=== PATIENT | female | born 1955 | race Caucasian/White ===

== ENCOUNTER → 2018-11-13 15:18 | Outpatient (CLI) | payer OTHER, MEDICAID, SELFPAY ==
--- NOTE | 2018-11-13 15:21 | DI.RAD.S_ITS ---
PROCEDURE: XR CERVICAL SPINE 2V OR 3V INDICATIONS: SPINAL STENOSIS CERVICAL REGION TECHNIQUE: 3 view(s) of the cervical spine were acquired. COMPARISON: None. FINDINGS: Bones: The cervicothoracic junction is adequately visualized on the lateral view and the alignment through this region is well-maintained. The vertebral body heights throughout the cervical spine are well-maintained. No acute compression fractures are evident. The bone mineralization is within normal limits. No suspicious osseous lesions are present. Moderate degenerative changes of the cervical spine are evident with areas of mild to moderate disc height loss and facet arthrosis (left greater than right). Soft tissues: No prevertebral soft tissue swelling. IMPRESSION: Moderate degenerative changes of the cervical spine are more pronounced involving the facet joints (left greater than right). Dictated by: Cooper Kimbrough M.D. on 11/13/2018 at 14:53 Approved by: Cooper Kimbrough M.D. on 11/13/2018 at 14:54
== END ==
PROVIDERS: Visit Provider Family Medicine
DX: M48.02 Spinal stenosis, cervical region (principal); M47.812 Spondylosis without myelopathy or radiculopathy, cervical region
CPT/HCPCS: 72040

== ENCOUNTER → 2018-12-01 10:42 | Outpatient (CLI) | payer OTHER, MEDICAID, SELFPAY | PROVIDERS: Visit Provider Family Medicine | DX: M81.0 Age-related osteoporosis without current pathological fracture (principal); Z78.0 Asymptomatic menopausal state; M47.22 Other spondylosis with radiculopathy, cervical region | CPT/HCPCS: 77080 ==

== ENCOUNTER → 2021-01-16 07:46 | Outpatient (CLI) | payer MEDICARE, OTHER, SELFPAY ==
[2021-01-16 21:23] LABS: COVID19 - ORCAS (NP or Nasal) Negative (Negative)
== END ==
PROVIDERS: PCP Specialist; Visit Provider Physician Assistant
DX: Z20.822 Contact with and (suspected) exposure to COVID-19 (principal)
CPT/HCPCS: U0003

== ENCOUNTER → 2021-01-18 13:54 | Outpatient (CLI) | payer MEDICARE, OTHER, SELFPAY ==
[2021-01-18 18:56] LABS: Add Manual Diff / Slide Review NO; Basophils Absolute Auto 0 /uL (0-100); Basophils Percent Auto 0.7 % (0-2); Eosinophils Absolute Auto 100 /uL (0-450); Eosinophils Percent Auto 1.1 % (2-4); Hematocrit 38.7 % (36-46); Hemoglobin 12.9 g/dL (12.0-16.0); Lymphocytes Absolute Auto 1600 /uL (1100-4500); Lymphocytes Percent Auto 26.8 % (25-40); Mean Corpuscular HGB Conc 33.3 % (30-36); Mean Corpuscular Hemoglobin 30.3 PG (26-34); Mean Corpuscular Volume 90.9 fL (80-100); Monocytes Absolute Auto 300 /uL (0-900); Monocytes Percent Auto 4.7 % (3-14); Neutrophils Absolute Auto 3900 /uL (1500-7000); Neutrophils Percent Auto 66.7 % (50-75); Platelet Count 218 X10^3/uL (150-400); Red Blood Cell Count 4.26 X10^6/uL (4.0-5.2); Red Cell Distribution Width 13.9 % (11.6-14.8); White Blood Cell Count 5.9 X10^3/uL (4.5-11.0)
[2021-01-18 19:21] LABS: Erythrocyte Sedimentation Rate 5 MM/HR (0-20)
== END ==
PROVIDERS: PCP Specialist; Referring Provider Family Medicine; Visit Provider Family Medicine
DX: M25.50 Pain in unspecified joint (principal)
CPT/HCPCS: 85025; 85651; 86617

== ENCOUNTER → 2021-01-23 08:58 | Outpatient (CLI) | payer MEDICARE, OTHER, SELFPAY ==
--- NOTE | 2021-01-23 09:00 | DI.NM.S_ITS ---
PROCEDURE: [place] BONE 3 PHASE RADIOPHARMACEUTICAL: 19.4 mCi Tc-99m MDP IV. INDICATIONS: Progressive right 4th and 5th metatarsal pain after hiking TECHNIQUE: Multiple bone scintigrams were obtained after intravenous injection of Tc-99m MDP, including flow, blood pool, and delayed images centered to the region of interest. COMPARISON: None. FINDINGS: There is no abnormal blood flow to the feet. There is significant increased blood pool and delayed radiotracer uptake within the region of the right 4th metatarsal neck, as well as mildly increased uptake within the left 1st and 2nd metatarsophalangeal joints. IMPRESSION: 1. Findings suggestive of a fracture of the right 4th metatarsal head/neck region. 2. Findings suggestive of osteoarthritis involving the left 1st and 2nd metatarsophalangeal joints. 3. Initial further assessment with plain film evaluation is recommended. MRI may also be helpful for further assessment. Dictated by: Mary Fuentes M.D. on 01/23/2021 at 15:23 Approved by: Mary Fuentes M.D. on 01/23/2021 at 15:26
== END ==
PROVIDERS: PCP Family Medicine; Referring Provider Family Medicine; Visit Provider Family Medicine
DX: M79.671 Pain in right foot (principal)
CPT/HCPCS: 78315; A9503

== ENCOUNTER → 2021-02-06 09:14 | Outpatient (CLI) | payer MEDICARE, OTHER, SELFPAY | PROVIDERS: PCP Family Medicine; Visit Provider Family Medicine | DX: N23 Unspecified renal colic (principal) | CPT/HCPCS: 87086 ==

== ENCOUNTER → 2021-03-04 07:54 | Outpatient (CLI) | payer MEDICARE, OTHER, SELFPAY ==
[2021-03-04 20:32] LABS: COVID19 - ORCAS (NP or Nasal) Negative (Negative)
== END ==
PROVIDERS: PCP Family Medicine; Visit Provider Family Medicine
DX: Z20.822 Contact with and (suspected) exposure to COVID-19 (principal)
CPT/HCPCS: C9803; U0003

== ENCOUNTER → 2021-04-02 16:14 | Outpatient (CLI) | payer MEDICARE, OTHER, SELFPAY ==
--- NOTE | 2021-04-02 16:16 | DI.MRI.S_ITS ---
PROCEDURE: MR FOOT RT WO CON INDICATIONS: rule out nonunion of a proximal right 4th metatarsal fractur TECHNIQUE: Noncontrast sagittal T1 spin echo and T2 fast spin echo with fat saturation, long-axis T1 spin echo and T2 fast spin echo with fat saturation, short-axis T1 spin echo and T2 fast spin echo with fat saturation through the forefoot. COMPARISON: [place], [place], [place] BONE 3 PHASE, 01/23/2021, 9:27. FINDINGS: Image quality: Excellent. Bones and joints: Osseous edema is seen in the distal 4th metatarsal at the site of a healing fracture. There appears to be partial osseous fusion inferiorly on T1-weighted images, although the more dorsal and lateral portions of the fracture line are still visualized. No additional site of trabecular bone injury is seen. Moderate degenerative changes are seen at the 1st metatarsophalangeal joint. The sesamoid bones are normally aligned. Scattered degenerative changes are seen at the interphalangeal joints of the toes. Soft tissues: Mild soft tissue edema is seen surrounding the healing 4th metatarsal fracture. Nonspecific subcutaneous soft tissue edema is seen in the forefoot dorsally and at the plantar aspect of the 2nd through 4th toes. Chronic pressure related changes are seen plantar to the 5th metatarsal head. A small amount of osseous edema is seen within the plantar foot musculature that is nonspecific. The musculature is normal in bulk. The visualized flexor and extensor tendons are intact. The principal Lisfranc ligament appears intact. No soft tissue ganglion cysts or bursal fluid collections. Sagittal images demonstrate no evidence for plantar plate tears. IMPRESSION: 1. Healing fracture of the 4th metatarsal neck with surrounding osseous and soft tissue edema. There is partial osseous fusion across the plantar portion of the metatarsal neck. 2. Moderate 1st metatarsophalangeal joint osteoarthrosis. Mild scattered degenerative changes are seen in the toes. Dictated by: Quinn Rosales M.D. on 04/03/2021 at 10:12 Approved by: Quinn Rosales M.D. on 04/03/2021 at 10:18
== END ==
PROVIDERS: PCP Family Medicine; Referring Provider Family Medicine; Visit Provider Family Medicine
DX: M79.671 Pain in right foot (principal); M19.071 Primary osteoarthritis, right ankle and foot; S92.341D Displaced fracture of fourth metatarsal bone, right foot, subsequent encounter for fracture with routine healing; R60.0 Localized edema; X58.XXXD Exposure to other specified factors, subsequent encounter
CPT/HCPCS: 73718

== ENCOUNTER → 2021-07-22 12:34 | Outpatient (CLI) | payer MEDICARE, OTHER, SELFPAY ==
[2021-07-22 19:38] LABS: Alanine Aminotransferase 14 IU/L (<35); Albumin Globulin Ratio 1.5 (1.0-2.8); Alkaline Phosphatase 46 U/L (38-126); Aspartate Aminotransferase 25 IU/L (14-36); BUN Creatinine Ratio 13.6 (6-22); Bilirubin Total 0.7 mg/dL (0.2-1.3); Blood Urea Nitrogen 9 mg/dL (7-17); Calcium 9.2 mg/dL (8.4-10.2); Carbon Dioxide 33 mmol/L (22-32); Chloride 102 mmol/L (98-107); Cholesterol 233 mg/dL (140-199); Estimated Glomerular Filt Rate > 60.0 mL/min (>60); Globulin 2.7 g/dL (1.7-4.1); Glucose 99 mg/dL (80-110); HDL Cholesterol 76 mg/dL (40-60); HEMOLYSIS < 15 (0-50); LDL Cholesterol Calculated 140 mg/dL (<100); Potassium 4.2 mmol/L (3.4-5.1); Sodium 134 mmol/L (137-145); Total Protein 6.7 g/dL (6.3-8.2); Triglycerides 87 mg/dL (35-150)
[2021-07-22 19:50] LABS: Free T4, Direct Thyroxine 1.06 ng/dL (0.78-2.19)
[2021-07-22 20:04] LABS: Thyroid Stimulating Hormone 1.33 uIU/mL (0.47-4.68)
== END ==
PROVIDERS: PCP Family Medicine; Visit Provider Family Medicine
DX: B97.7 Papillomavirus as the cause of diseases classified elsewhere (principal); M81.8 Other osteoporosis without current pathological fracture; E07.9 Disorder of thyroid, unspecified; R42 Dizziness and giddiness; S92.343A Displaced fracture of fourth metatarsal bone, unspecified foot, initial encounter for closed fracture
CPT/HCPCS: 80053; 80061; 84439; 84443

== ENCOUNTER → 2021-07-30 08:56 | Outpatient (CLI) | payer MEDICARE, OTHER, SELFPAY ==
--- NOTE | 2021-07-30 08:58 | DI.US.S_ITS ---
PROCEDURE: US CHEST COMPARISON: None. INDICATIONS: RIGHT ANTERIOR CHEST WALL PAIN FINDINGS: No mass, fluid collection, or other abnormality at the patient's area of concern in the anterior chest wall. IMPRESSION: Normal study. No abnormality demonstrated at the area concern. Dictated by: Redd Farmer M.D. on 07/30/2021 at 10:23 Approved by: Redd Farmer M.D. on 07/30/2021 at 10:24
== END ==
PROVIDERS: PCP Family Medicine; Referring Provider Physician Assistant Medical; Visit Provider Physician Assistant Medical
DX: R07.89 Other chest pain (principal)
CPT/HCPCS: 76604

== ENCOUNTER → 2021-09-06 10:29 | Outpatient (CLI) | payer MEDICARE, OTHER, SELFPAY ==
[2021-09-06 11:37] LABS: COVID19 -Nasal RAPID Negative (Negative)
== END ==
PROVIDERS: PCP Family Medicine; Referring Provider Internal Medicine; Visit Provider Internal Medicine
DX: Z20.822 Contact with and (suspected) exposure to COVID-19 (principal)
CPT/HCPCS: 87635; C9803

== ENCOUNTER → 2021-09-06 10:31 | Outpatient (CLI) | payer MEDICARE, OTHER, SELFPAY ==
--- NOTE | 2021-09-11 10:26 | PM.PFT.1 ---
Pulmonary Function Test Referral & Results Date Patient Seen: 09/06/21 Requesting provider: Kendy Fajardo Results: The spirometry demonstrates an FVC of 3.16 L which is 90% of predicted. The FEV1 was measured at 2.25 L which is 85% of predicted. The FEV1/FVC ratio was 71 which is 92% of predicted. Following the administration of bronchodilator there was 29% improvement in FEF 25-75% Lung volumes show an SVC of 3.34 L which is 103% of predicted. The diffusing capacity was measured at 24.36 which is 86% of predicted. The maximum voluntary ventilation was probably normal Interpretation: This study demonstrates probably normal pulmonary function. The maybe a very minimal reduction in FEV1 with some minimal evidence of benefit following bronchodilator as above. This may suggest very minimal obstructive lung disease. Shape a flow volume loop also supports this but overall, if present, this is extremely minimal Clinical correlation suggested
== END ==
PROVIDERS: PCP Family Medicine; Referring Provider Specialist; Visit Provider Specialist
DX: R91.8 Other nonspecific abnormal finding of lung field (principal); Z20.822 Contact with and (suspected) exposure to COVID-19; R06.00 Dyspnea, unspecified; J98.8 Other specified respiratory disorders; R93.89 Abnormal findings on diagnostic imaging of other specified body structures
CPT/HCPCS: 87635; 94060; 94726; 94729; C9803

== ENCOUNTER → 2021-12-05 11:00 | Outpatient (CLI) | payer MEDICARE, OTHER, SELFPAY ==
--- NOTE | 2021-12-05 | DI.MRI.S_ITS ---
PROCEDURE: MR FOOT RT WO CON INDICATIONS: Pain in right foot TECHNIQUE: Noncontrast sagittal T1 spin echo and T2 fast spin echo with fat saturation, long-axis T1 spin echo and T2 fast spin echo with fat saturation, short-axis T1 spin echo and T2 fast spin echo with fat saturation through the forefoot. COMPARISON: [facility], , MR FOOT RT WO CON, 04/02/2021, 17:02. FINDINGS: Image quality: Excellent. Bones and joints: No bone marrow contusions or metatarsal stress fractures. The sesamoid bones appear in expected positions, without internal edema. Mild periarticular osteophyte formation at the 1st metatarsophalangeal joint. Mild degenerative marrow edema within the 1st metatarsal head and proximal aspect of the proximal phalanx of the 1st digit. No intraosseous lesions. Soft tissues: The visualized plantar foot muscles demonstrate normal signal and bulk. Visualized flexor and extensor tendons appear intact, without tenosynovitis. The distal insertions of the peroneus brevis and longus tendons appear intact. The principal Lisfranc ligament appears intact. No soft tissue ganglion cysts or bursal fluid collections. Sagittal images demonstrate no evidence for plantar plate tears. IMPRESSION: 1. 1st metatarsophalangeal joint osteoarthritis. Dictated by: Mary Fuentes M.D. on 12/05/2021 at 13:41 Approved by: Mary Fuentes M.D. on 12/05/2021 at 13:44
== END ==
PROVIDERS: Referring Provider Podiatrist; Visit Provider Podiatrist
DX: M19.071 Primary osteoarthritis, right ankle and foot (principal); M79.671 Pain in right foot
CPT/HCPCS: 73718

== ENCOUNTER → 2022-02-03 09:25 | Outpatient (CLI) | payer MEDICARE, OTHER, SELFPAY ==
--- NOTE | 2022-02-03 | DI.RAD.S_ITS ---
PROCEDURE: XR BONE LENGTH SCANOGRAM INDICATIONS: UNEQUAL LEG LENGTH, PAIN IN RIGHT FOOT AND HIP TECHNIQUE: Frontal supine views of both lower extremities acquired at the level of the hips, knees, and ankles, with measuring ruler situated between the legs. COMPARISON: None. FINDINGS: Right: Superior femoral head is located at approximately 93 cm. Medial femoral condyle articular surface is located at approximately 47.5 cm. Central tibial plafond is located approximately 10.5 cm. Calculated length from the superior femoral head to the medial femoral condyle is 45.5 cm. Calculated length from the medial femoral condyle to the central tibial plafond and is 37 cm. Total leg length is 82.5 cm. Left: Superior femoral head is located at approximately 93 cm. Medial femoral condyle articular surface is located at approximately 47 cm. Central tibial plafond is located approximately 10.5 cm. Calculated length from the superior femoral head to the medial femoral condyle is 46 cm. Calculated length from the medial femoral condyle to the central tibial plafond and is 37.5 cm. Total leg length is 82.5 cm. IMPRESSION: No significant leg length discrepancy. Dictated by: Quinn Rosales M.D. on 02/04/2022 at 15:51 Approved by: Quinn Rosales M.D. on 02/04/2022 at 15:59
== END ==
PROVIDERS: Referring Provider Student in an Organized Health Care Education/Training Program; Visit Provider Student in an Organized Health Care Education/Training Program
DX: M21.70 Unequal limb length (acquired), unspecified site (principal); M79.673 Pain in unspecified foot; M25.551 Pain in right hip
CPT/HCPCS: 77073

== ENCOUNTER → 2022-02-03 10:04 | Outpatient (CLI) | payer MEDICARE, OTHER, SELFPAY ==
--- NOTE | 2022-02-03 | DI.MG.S_ITS ---
BILATERAL DIGITAL SCREENING MAMMOGRAM 3D/2D WITH CAD: 02/03/2022 CLINICAL: Routine screening. Comparison is made to exams dated: 02/22/2020 mammogram, 12/01/2018 mammogram, and 12/12/2016 mammogram - [facility]. The tissue of both breasts is extremely dense, which lowers the sensitivity of mammography. Current study was also evaluated with a Computer Aided Detection (CAD) system. No significant masses, calcifications, or other findings are seen in either breast. There has been no significant interval change. IMPRESSION: NEGATIVE There is no mammographic evidence of malignancy. A 1 year screening mammogram is recommended. Based on the Tyrer Cuzick model (a risk assessment model) the patient's lifetime risk is 14.5% and her 10 year risk is 7.7%. According to the ACR, ACS, and NCCN guidelines, an annual breast MRI exam along with mammogram is recommended if the patient's lifetime risk is 20% or greater. This exam was interpreted at Station ID: [id number]. NOTE: For mammograms, a report in lay terms will be sent to the patient. Approximately 15% of breast malignancies will not be visualized mammographically. In the management of a palpable breast mass, a negative mammogram must not discourage biopsy of a clinically suspicious lesion. Electronically Signed By: Quinn le/na:02/03/2022 13:03:35 letter sent: Normal Exam ACR BI-RADS Category 1: Negative [id number]
== END ==
PROVIDERS: Referring Provider Podiatrist; Visit Provider Podiatrist
DX: Z12.31 Encounter for screening mammogram for malignant neoplasm of breast (principal); M21.70 Unequal limb length (acquired), unspecified site; M25.551 Pain in right hip; M79.673 Pain in unspecified foot
CPT/HCPCS: 77063; 77067; 77073

== ENCOUNTER → 2022-04-23 12:04 | Outpatient (CLI) | payer MEDICARE, OTHER, SELFPAY ==
[2022-04-25 15:36] LABS: Candida species Negative (Negative); Gardnerella vaginalis Negative (Negative); Trichomoas vaginalis Negative (Negative)
== END ==
PROVIDERS: PCP Physician Assistant; Visit Provider Physician Assistant
DX: Z01.419 Encounter for gynecological examination (general) (routine) without abnormal findings (principal); N89.8 Other specified noninflammatory disorders of vagina
CPT/HCPCS: 87480; 87510; 87660

== ENCOUNTER → 2022-07-08 08:52 | Outpatient (CLI) | payer MEDICARE, OTHER, SELFPAY ==
--- NOTE | 2022-07-08 08:56 | DI.RAD.S_ITS ---
PROCEDURE: XR CERVICAL SPINE 2V OR 3V INDICATIONS: worsening neck pain TECHNIQUE: 3 view(s) of the cervical spine were acquired. COMPARISON: [facility], [place], XR CERVICAL SPINE 2V OR 3V, 11/13/2018, 15:26. FINDINGS: Bones: No fractures or dislocations to the T1 level. The lateral masses of C1 appear intact on the odontoid view. No suspicious bony lesions. Multilevel disc space narrowing and endplate osteophyte formation, worst at C5-C6 and C6-C7, indicating degenerative disc disease. Facet hypertrophy throughout the mid and lower cervical spine. Soft tissues: No prevertebral soft tissue swelling. IMPRESSION: 1. Multilevel degenerative disc and facet disease. 2. No acute fracture. No osseous lesion. If symptoms and/or clinical suspicion for pathology persist, further assessment with repeat, or advanced imaging (e.g., CT, MRI, or bone scan) may be helpful for further assessment. Dictated by: Mary Fuentes M.D. on 07/08/2022 at 11:16 Transcribed by: LUCIANA on 07/08/2022 at 11:19 Approved by: Mary Fuentes M.D. on 07/08/2022 at 16:31
== END ==
PROVIDERS: PCP Physician Assistant; Referring Provider Physician Assistant; Visit Provider Physician Assistant
DX: M50.321 Other cervical disc degeneration at C4-C5 level (principal)
CPT/HCPCS: 72040

== ENCOUNTER → 2022-07-28 10:43 | Outpatient (CLI) | payer MEDICARE, OTHER, SELFPAY ==
--- NOTE | 2022-07-28 10:46 | DI.MRI.S_ITS ---
PROCEDURE: MR CERVICAL SPINE WO CON INDICATIONS: neck pain causing headaches and arm pains TECHNIQUE: Noncontrast sagittal T1 spin echo and T2 fast spin echo, sagittal STIR, foraminal oblique sagittal T2 fast spin echo, and axial gradient echo or T2 fast spin echo through the cervical spine. COMPARISON: None. FINDINGS: Image quality: Excellent. Alignment and Curvature: There is normal bony alignment. Bone Marrow: Marrow demonstrates normal overall signal. Spinal Cord: Visualized spinal cord has normal size and signal. No cerebellar tonsillar herniation. Paraspinous Soft Tissues: No paravertebral masses. Prevertebral soft tissues are normal in thickness. C2-C3: Normal appearance. C3-C4: Normal appearance. C4-C5: Normal appearance. C5-C6: Disc space narrowing and posterior disc osteophyte complex combines with hypertrophic uncovertebral joints result in mild to moderate central stenosis. Moderate foraminal stenosis C6-C7: Disc space narrowing with posterior disc osteophyte complex results in moderate central stenosis with flattening the ventral surface of the cord. Moderate left and mild right foraminal stenosis C7-T1: Normal appearance. IMPRESSION: Multilevel degenerative disc disease and arthropathy results in varying degrees of central and foraminal stenosis including moderate central stenosis C6-7 Approved by: Delonte Salomon M.D. on 07/28/2022 at 16:07
[2022-07-28 13:11] LABS: Add Manual Diff / Slide Review NO; Basophils Absolute Auto 0 /uL (0-100); Basophils Percent Auto 0.7 % (0-2); Eosinophils Absolute Auto 100 /uL (0-450); Eosinophils Percent Auto 1.7 % (2-4); Hemoglobin 12.7 g/dL (12.0-16.0); Lymphocytes Absolute Auto 1400 /uL (1100-4500); Lymphocytes Percent Auto 30.1 % (25-40); Mean Corpuscular HGB Conc 33.5 % (30-36); Mean Corpuscular Hemoglobin 30.4 PG (26-34); Mean Corpuscular Volume 90.8 fL (80-100); Monocytes Absolute Auto 300 /uL (0-900); Monocytes Percent Auto 5.9 % (3-14); Neutrophils Absolute Auto 2900 /uL (1500-7000); Neutrophils Percent Auto 61.6 % (50-75); Platelet Count 208 X10^3/uL (150-400); Red Blood Cell Count 4.18 X10^6/uL (4.0-5.2); Red Cell Distribution Width 13.1 % (11.6-14.8); White Blood Cell Count 4.8 X10^3/uL (4.5-11.0)
[2022-07-28 13:28] LABS: HEMOLYSIS < 15 (0-50); Iron 70 ug/dL (37-170)
[2022-07-28 13:33] LABS: Alanine Aminotransferase 19 IU/L (<35); Albumin 4.3 g/dL (3.5-5.0); Albumin Globulin Ratio 1.7 (1.0-2.8); Alkaline Phosphatase 51 U/L (38-126); Aspartate Aminotransferase 27 IU/L (14-36); Bilirubin Total 0.5 mg/dL (0.2-1.3); Blood Urea Nitrogen 13 mg/dL (7-17); Carbon Dioxide 30 mmol/L (22-32); Chloride 98 mmol/L (98-107); Cholesterol 236 mg/dL (140-199); Estimated Glomerular Filt Rate > 60 mL/min (>60); Globulin 2.6 g/dL (1.7-4.1); Glucose 80 mg/dL (80-110); HDL Cholesterol 82 mg/dL (40-60); HEMOLYSIS < 15 (0-50); LDL Cholesterol Calculated 139 mg/dL (<100); Potassium 4.1 mmol/L (3.4-5.1); Sodium 135 mmol/L (137-145); Total Protein 6.9 g/dL (6.3-8.2); Triglycerides 77 mg/dL (35-150)
[2022-07-28 13:40] LABS: Percent Iron Saturation 18 % (15-50); Total Iron Binding Capacity 379 ug/dL (265-497); Transferrin 278 mg/dL (206-381)
[2022-07-28 13:48] LABS: Vitamin D 25 Hydroxy (D3) 67.9 ng/mL (30.0-100.0)
[2022-07-28 13:53] LABS: Free T4, Direct Thyroxine 1.03 ng/dL (0.78-2.19)
[2022-07-28 14:07] LABS: Ferritin 22 ng/mL (11-264)
== END ==
PROVIDERS: PCP Physician Assistant; Referring Provider Physician Assistant; Visit Provider Physician Assistant
DX: M50.122 Cervical disc disorder at C5-C6 level with radiculopathy (principal); M48.02 Spinal stenosis, cervical region; M81.0 Age-related osteoporosis without current pathological fracture; R07.89 Other chest pain; E07.9 Disorder of thyroid, unspecified; M47.22 Other spondylosis with radiculopathy, cervical region; B97.7 Papillomavirus as the cause of diseases classified elsewhere; M25.50 Pain in unspecified joint; E78.5 Hyperlipidemia, unspecified; Z78.0 Asymptomatic menopausal state; Z86.2 Personal history of diseases of the blood and blood-forming organs and certain disorders involving the immune mechanism
CPT/HCPCS: 36415; 72141; 77080; 80053; 80061; 82306; 82728; 83540; 83550; 84439; 84443; 84481; 85025

== ENCOUNTER → 2023-07-14 08:59 | Outpatient (CLI) | payer MEDICARE, SELFPAY ==
[2023-07-14 19:14] LABS: Add Manual Diff / Slide Review NO; Basophils Absolute Auto 0 /uL (0-100); Basophils Percent Auto 0.5 % (0-2); Eosinophils Absolute Auto 100 /uL (0-450); Eosinophils Percent Auto 2.1 % (2-4); Hematocrit 39.8 % (36-46); Hemoglobin 13.2 g/dL (12.0-16.0); Lymphocytes Absolute Auto 1100 /uL (1100-4500); Lymphocytes Percent Auto 19.7 % (25-40); Mean Corpuscular HGB Conc 33.2 % (30-36); Mean Corpuscular Hemoglobin 30.1 PG (26-34); Mean Corpuscular Volume 90.5 fL (80-100); Monocytes Absolute Auto 300 /uL (0-900); Monocytes Percent Auto 5.3 % (3-14); Neutrophils Absolute Auto 4000 /uL (1500-7000); Neutrophils Percent Auto 72.4 % (50-75); Platelet Count 221 X10^3/uL (150-400); Red Cell Distribution Width 12.9 % (11.6-14.8); White Blood Cell Count 5.5 X10^3/uL (4.5-11.0)
[2023-07-14 19:21] LABS: HEMOLYSIS < 15 (0-50)
[2023-07-14 19:37] LABS: Vitamin D 25 Hydroxy (D3) 59.6 ng/mL (30.0-100.0)
[2023-07-14 19:45] LABS: Alanine Aminotransferase 15 IU/L (<35); Albumin Globulin Ratio 1.4 (1.0-2.8); Alkaline Phosphatase 50 U/L (38-126); Aspartate Aminotransferase 26 IU/L (14-36); BUN Creatinine Ratio 21.6 (6-22); Bilirubin Total 0.7 mg/dL (0.2-1.3); Blood Urea Nitrogen 16 mg/dL (7-17); Calcium 9.4 mg/dL (8.4-10.2); Carbon Dioxide 29 mmol/L (22-32); Chloride 99 mmol/L (98-107); Cholesterol 224 mg/dL (140-199); Estimated Glomerular Filt Rate > 60 mL/min (>60); Globulin 2.8 g/dL (1.7-4.1); Glucose 83 mg/dL (80-110); HDL Cholesterol 61 mg/dL (40-60); HEMOLYSIS 15 (0-50); Iron 64 ug/dL (37-170); LDL Cholesterol Calculated 141 mg/dL (<100); Potassium 4.1 mmol/L (3.4-5.1); Sodium 134 mmol/L (137-145); Total Protein 6.8 g/dL (6.3-8.2); Triglycerides 111 mg/dL (35-150)
[2023-07-14 19:57] LABS: Percent Iron Saturation 21 % (15-50); Total Iron Binding Capacity 308 ug/dL (265-497); Transferrin 261 mg/dL (206-381)
[2023-07-14 20:06] LABS: Free T3, Triiodothyronine Free 3.41 pg/mL (2.77-5.27); Free T4, Direct Thyroxine 0.99 ng/dL (0.78-2.19)
[2023-07-14 20:19] LABS: TSH w/ Reflex to FT4 1.69 uIU/mL (0.47-4.68)
[2023-07-14 21:17] LABS: Ferritin 29 ng/mL (11-264)
[2023-07-14 21:48] LABS: Folate > 20.0 ng/mL (2.76-20.0); Vitamin B12 > 1000 pg/mL (239-931)
== END ==
PROVIDERS: PCP Physician Assistant; Visit Provider Physician Assistant
DX: Z13.6 Encounter for screening for cardiovascular disorders (principal); R53.83 Other fatigue; D64.9 Anemia, unspecified; R42 Dizziness and giddiness; R19.7 Diarrhea, unspecified; E78.5 Hyperlipidemia, unspecified; E07.9 Disorder of thyroid, unspecified
CPT/HCPCS: 80053; 80061; 82306; 82607; 82728; 82746; 83540; 83550; 83735; 84439; 84443; 84481; 85025; 87177

== ENCOUNTER → 2023-10-06 10:56 | Outpatient (CLI) | payer MEDICARE, MEDICAID, SELFPAY | PROVIDERS: PCP Physician Assistant; Visit Provider Physician Assistant | DX: N39.0 Urinary tract infection, site not specified (principal) | CPT/HCPCS: 87086 ==

== ENCOUNTER → 2023-10-20 14:25 | Outpatient (CLI) | payer MEDICARE, MEDICAID, SELFPAY ==
--- NOTE | 2023-10-20 14:27 | DI.US.S_ITS ---
PROCEDURE: US PELVIC COMPLETE INDICATIONS: PAIN TECHNIQUE: Real-time scanning was performed of the pelvic organs, with image documentation. Additional endovaginal scanning was necessary due to incomplete visualization of the adnexal and endometrial structures by transabdominal scanning. COMPARISON: [facility], [place], US PELVIC COMPLETE, 05/26/2019, 12:14. FINDINGS: Uterus: Uterus is anteverted and normal in size at 5.6 x 2.3 x 3.6 cm. The myometrium is homogeneous. The endometrium measures 2 mm combined thickness. Ovaries: The bilateral ovaries are not visualized on this study. Other: No pathologic free abdominal or pelvic fluid. Postvoid urinary bladder volume measured 11.2 mL. IMPRESSION: No acute sonographic abnormalities identified in the uterus. The bilateral ovaries were not visualized on this exam. We strive to produce accurate, complete, and clear reports of imaging services. To assist us in improving patient care, this report was composed using standard report templates and voice recognition software. Therefore, it may contain abnormal punctuation, insertions and/or omissions. Occasional wrong-word or sound-alike substitutions may occur. Though we review the report and make efforts to correct it, we do recommend that the report be read carefully in proper context to recognize any text inaccuracies. Dictated by: Ki Pendleton M.D. on 10/20/2023 at 16:05 Approved by: Ki Pendleton M.D. on 10/20/2023 at 16:06
== END ==
PROVIDERS: PCP Physician Assistant; Referring Provider Physician Assistant; Visit Provider Physician Assistant
DX: R19.00 Intra-abdominal and pelvic swelling, mass and lump, unspecified site (principal); R10.2 Pelvic and perineal pain; R23.2 Flushing
CPT/HCPCS: 76856

== ENCOUNTER → 2024-05-26 09:39 | Outpatient (CLI) | payer MEDICARE, MEDICAID, SELFPAY ==
[2024-05-26 19:45] LABS: Add Manual Diff / Slide Review NO; Basophils Absolute Auto 0 /uL (0-100); Basophils Percent Auto 0.8 % (0-2); Eosinophils Absolute Auto 100 /uL (0-450); Eosinophils Percent Auto 1.6 % (2-4); Hematocrit 40.2 % (36-46); Hemoglobin 13.3 g/dL (12.0-16.0); Lymphocytes Absolute Auto 1300 /uL (1100-4500); Lymphocytes Percent Auto 24.2 % (25-40); Mean Corpuscular HGB Conc 33.1 % (30-36); Mean Corpuscular Volume 90.5 fL (80-100); Monocytes Absolute Auto 300 /uL (0-900); Neutrophils Absolute Auto 3700 /uL (1500-7000); Neutrophils Percent Auto 67.4 % (50-75); Platelet Count 259 X10^3/uL (150-400); Red Blood Cell Count 4.44 X10^6/uL (4.0-5.2); Red Cell Distribution Width 13.6 % (11.6-14.8); White Blood Cell Count 5.5 X10^3/uL (4.5-11.0)
[2024-05-26 19:46] LABS: Alanine Aminotransferase 20 IU/L (<35); Albumin 4.5 g/dL (3.5-5.0); Albumin Globulin Ratio 1.8 (1.0-2.8); Alkaline Phosphatase 69 U/L (38-126); Aspartate Aminotransferase 35 IU/L (14-36); BUN Creatinine Ratio 21.6 (6-22); Bilirubin Total 0.6 mg/dL (0.2-1.3); Blood Urea Nitrogen 16 mg/dL (7-17); Calcium 9.5 mg/dL (8.4-10.2); Carbon Dioxide 29 mmol/L (22-32); Chloride 101 mmol/L (98-107); Cholesterol 275 mg/dL (140-199); Estimated Glomerular Filt Rate > 60 mL/min (>60); Globulin 2.5 g/dL (1.7-4.1); Glucose 100 mg/dL (80-110); HDL Cholesterol 90 mg/dL (40-60); HEMOLYSIS 24 (0-50); LDL Cholesterol Calculated 170 mg/dL (<100); Potassium 4.4 mmol/L (3.4-5.1); Sodium 137 mmol/L (137-145); Triglycerides 77 mg/dL (35-150); VLDL Cholesterol Calculated 15 mg/dL (2-30)
[2024-05-26 20:28] LABS: TSH w/ Reflex to FT4 2.05 uIU/mL (0.47-4.68)
[2024-05-26 20:58] LABS: Erythrocyte Sedimentation Rate 5 MM/HR (0-20)
== END ==
PROVIDERS: PCP Physician Assistant; Visit Provider Physician Assistant
DX: E78.5 Hyperlipidemia, unspecified (principal); R00.2 Palpitations; R59.0 Localized enlarged lymph nodes; E78.00 Pure hypercholesterolemia, unspecified; E87.1 Hypo-osmolality and hyponatremia; R52 Pain, unspecified; Z77.120 Contact with and (suspected) exposure to mold (toxic); Z86.2 Personal history of diseases of the blood and blood-forming organs and certain disorders involving the immune mechanism
CPT/HCPCS: 80053; 80061; 84443; 85025; 85651

== ENCOUNTER → 2024-07-11 11:56 | Outpatient (CLI) | payer MEDICARE, MEDICAID, SELFPAY ==
--- NOTE | 2024-07-11 11:59 | DI.MG.S_ITS ---
BILATERAL DIGITAL DIAGNOSTIC MAMMOGRAM 3D/2D: 07/11/2024 CLINICAL: Bilateral enlarged lymph nodes. Comparison is made to exams dated: 06/16/2024 mammogram, 04/29/2023 mammogram - [facility], and 02/03/2022 mammogram - [facility]. The breasts are extremely dense, which lowers the sensitivity of mammography (category d />75% glandular tissue). No significant masses, calcifications, or other findings are seen in either breast. IMPRESSION: INCOMPLETE: NEED ADDITIONAL IMAGING EVALUATION There is no abnormality seen in the right breast or in the right axilla to correspond with the area of clinical concern, palpable abnormality, and tenderness , however, ultrasound is recommended for further evaluation and is scheduled to immediately follow this examination. There is no abnormality seen in the left axilla to correspond with the palpable abnormality and tenderness, however, ultrasound is recommended for further evaluation and is scheduled to immediately follow this examination. Based on the Tyrer Cuzick model (a risk assessment model) the patient's lifetime risk is 12.4% and her 10 year risk is 7.9%. According to the ACR, ACS, and NCCN guidelines, an annual breast MRI exam along with mammogram is recommended if the patient's lifetime risk is 20% or greater. This exam was interpreted at Station ID: [id number]. NOTE: For mammograms, a report in lay terms will be sent to the patient. Approximately 15% of breast malignancies will not be visualized mammographically. In the management of a palpable breast mass, a negative mammogram must not discourage biopsy of a clinically suspicious lesion. Electronically Signed By: Ki Pendleton M.D. at/:07/11/2024 12:55:48 letter sent: Additional Imaging Needed ACR BI-RADS Category 0: Incomplete: Need Additional Imaging Evaluation
--- NOTE | 2024-07-11 12:00 | DI.US.S_ITS ---
ULTRASOUND OF LEFT BREAST AND AXILLA: 07/11/2024 CLINICAL: Left axillary tenderness extending into asillary tail. Comparison is made to exams dated: 07/11/2024 mammogram - [facility], 06/16/2024 mammogram, 04/29/2023 mammogram - [facility], and 02/03/2022 mammogram - [facility]. Real-time ultrasound of the left breast axilla was performed. Harper scale images of the real-time examination were reviewed. There is a benign normal lymph node in the left axilla. No significant abnormalities were seen sonographically in the left axilla. IMPRESSION: BENIGN There is no sonographic evidence of malignancy. There is no abnormality seen in the left axilla to correspond with the area of clinical concern and tenderness, however, recommend clinical follow up for persistent or worsening symptoms, or development of any clinically suspicious findings. A 1 year screening mammogram is recommended. Findings and recommendations were conveyed to the patient during today's evaluation. This exam was interpreted at Station ID: [id number]. Electronically Signed By: Ki Pendleton M.D. at/:07/11/2024 13:39:12 letter sent: Clinical Evaluation ACR BI-RADS Category 2: Benign
--- NOTE | 2024-07-11 12:00 | DI.US.S_ITS ---
ULTRASOUND OF RIGHT BREAST AND AXILLA: 07/11/2024 CLINICAL: Right axillary tenderness extending into axillary tail. Comparison is made to exams dated: 07/11/2024 mammogram - [facility], 06/16/2024 mammogram, 04/29/2023 mammogram - [facility], and 02/03/2022 mammogram - [facility]. Real-time ultrasound of the right breast axilla was performed. Harper scale images of the real-time examination were reviewed. There is a normal lymph node in the right axilla. No significant abnormalities were seen sonographically in the right breast/axillary tail or the right axilla. IMPRESSION: BENIGN There is no sonographic evidence of malignancy. There is no abnormality seen in the right breast/axillary tail or in the right axilla to correspond with the area of clinical concern and tenderness. Recommend clinical follow up for persistent or worsening symptoms, or development of any clinically suspicious findings. A 1 year screening mammogram is recommended. Findings and recommendations were conveyed to the patient during today's evaluation. This exam was interpreted at Station ID: [id number]. Electronically Signed By: Ki Pendleton M.D. aty/:07/11/2024 13:41:17 letter sent: Clinical Evaluation ACR BI-RADS Category 2: Benign
== END ==
LOC: MAMMO 11:58
PROVIDERS: PCP Physician Assistant; Referring Provider Physician Assistant; Visit Provider Physician Assistant
DX: R92.2 Inconclusive mammogram (principal); R92.343 Mammographic extreme density, bilateral breasts; R59.0 Localized enlarged lymph nodes
CPT/HCPCS: 76882; 77066; G0279

== ENCOUNTER → 2025-01-17 15:33 | Outpatient (CLI) | payer MEDICARE, SELFPAY | PROVIDERS: PCP Physician Assistant; Visit Provider Physician Assistant Medical | DX: R30.9 Painful micturition, unspecified (principal); R35.0 Frequency of micturition; R39.15 Urgency of urination; R32 Unspecified urinary incontinence | CPT/HCPCS: 87086 ==